=== PATIENT | male | born 1975 | race Two or more races ===

== ENCOUNTER 2025-03-24 07:15 | Day surgery (SDC) | payer MEDICAID, SELFPAY ==
[2025-03-20 08:08] VITALS: BMI 28.0
[2025-03-20 08:59] LABS: Basophils # (Auto) 0.0 Thou/mm3 (0.0-0.2); Basophils % (Auto) 0 % (0-2.5); Eosinophils # (Auto) 0.1 Thou/mm3 (0.0-0.5); Eosinophils % (Auto) 1 % (0-10); Hematocrit 48.2 % (41.0-53.0); Hemoglobin 16.6 g/dL (13.5-16.0); Immature Granulocytes Auto 0.02 Thou/mm3 (0.00-0.00); Lymphocytes # (Auto) 1.3 Thou/mm3 (1.0-4.8); Lymphocytes % (Auto) 19 % (10-50); Mean Corpuscular HGB Conc 34.4 g/dl (31.0-37.0); Mean Corpuscular Hemoglobin 33.2 pg (25.0-35.0); Mean Corpuscular Volume 96 fL (80-100); Monocytes # (Auto) 0.5 Thou/mm3 (0.0-0.8); Monocytes % (Auto) 7 % (0-12); Neutrophils # (Auto) 5.1 Thou/mm3 (1.8-7.7); Neutrophils % (Auto) 72 % (37-80); Nucleated Red Blood Cell # 0.00 Thou/mm3 (0.00-0.00); Nucleated Red Blood Cell % 0 /100 WBC (0); Platelet Count 309 Thou/mm3 (140-440); RDW Standard Deviation 44.6 fL (35.1-43.9); Red Blood Count 5.00 Miln/mm3 (4.50-5.90); White Blood Count 7.1 Thou/mm3 (3.8-10.6)
[2025-03-20 09:07] LABS: INR 1.0 (0.9-1.3); Partial Thromboplastin Time 26.8 Seconds (22.0-36.0); Prothrombin Time 10.7 Seconds (9.0-12.2)
[2025-03-20 09:08] LABS: Alanine Aminotransferase 61 U/L (10-49); Albumin, Serum 4.6 gm/dL (3.5-5.0); Albumin/Globulin Ratio 1.4 (1.2-2.2); Alkaline Phosphatase 104 U/L (46-116); Anion Gap 8 (7-16); Aspartate Amino Transferase 42 U/L (0-34); BUN/Creatinine Ratio 29 Ratio (12-20); Bilirubin,Total 0.4 mg/dL (0.3-1.2); Blood Urea Nitrogen 29 mg/dL (9-23); Calcium 9.4 mg/dL (8.3-10.6); Calcium (Corrected) 9.4 mg/dL (8.5-10.1); Carbon Dioxide 29.4 mMol/L (20.0-31.0); Chloride 105 mMol/L (98-107); Creatinine (Component) 1.0 mg/dL (0.6-1.3); Estimated Creatinine Clearance 85.4 mL/min (>60); Globulin 3.3 gm/dL (2.3-3.5); Glucose 109 mg/dL (74-106); Osmolality,Calculated 289 (275-295); Potassium 4.7 mMol/L (3.4-5.1); Sodium 142 mMol/L (136-145); Total Protein 7.9 gm/dL (5.7-8.2); eGFR > 60 See Note
--- NOTE | 2025-03-23 15:00 | SUR.PREOP ---
Pt's LP, notified to bring pt at 0800 tomorrow.
[2025-03-24] VITALS (7 sets, daily range): BP systolic 105–151; BP diastolic 62–99; PULSE 82–104; RESP 12–20; TEMP 36.1–36.4; O2SAT 96–98; BMI 27.5
--- NOTE | 2025-03-24 11:33 | SUR.PHASEI ---
pt received from OR in recovery bay 2. pt obtunded, breathing unlabored on oxymask 8l, oral airway in place. v/s stable. pt dressing to abd cdi. report received from Deny Luevano and Dr. Zarate.
--- NOTE | 2025-03-24 11:39 | PD.SUROPNT ---
Date of Procedure 03/24/25 Pre Op Diagnosis Symptomatic umbilical hernia Post Op Diagnosis Same Procedure Repair of the symptomatic umbilical hernia with 1.7 inch Ventralex mesh Findings Patient had a defect made above 1.5 cm and required a mesh Procedure Description Of the patient was brought to the operating room endotracheal anesthesia was given. Abdomen was prepped with ChloraPrep solution and draped in sterile manner. Timeout was performed. Then I made a curved incision below the umbilicus and the skin was dissected away using Luigi retractors. Patient was found to have a hernia which was and is found to have preperitoneal fat. The sac was excised all the way down to the fascia which was clearly identified. This was dissected out to make sure there were no adhesions underneath and I placed a 1.[address] mesh and attach the Marlex straps to the edges with a 2-0 Prolene. I also placed sutures opposite of the Marlex mesh on both sides to anchor the mesh to the anterior abdominal wall. The subcutaneous tissue was closed with 3-0 plain and skin by 4-0 Monocryl subcuticular stitch. Dressing was applied with Adaptic and 4 x 4 and patient tolerated procedure well. Anesthesia GET[employer] Implants 1.[address] mesh Pathology / specimen None Estimated Blood Loss 10 Surgeon Darryl Franco MD Surgical Staff Operation Date: 03/24/25 10:00 Case Staff Anesthesiologist: John Grove RNcommunity service worker: Adrianna Ratliff
--- NOTE | 2025-03-24 12:15 | SUR.PHASEII ---
pt able to tolerate oral fluids without difficulty swallowing or nausea/vomiting.
--- NOTE | 2025-03-24 12:31 | SUR.PHASEII ---
pt awake and alert, breathing unlabored on room air. v/s stable. pt dressing to abd cdi. pt able to ambulate to wheelchair with steady gait. d/c instructions given with s/o Tiffanie in room, all questions answered. pt d/c via wheelchair with all belongings.
== END 2025-03-24 12:31 | disposition home or self-care (01) ==
PROVIDERS: Referring Provider Surgery; Visit Provider Surgery
PROC: (CPT 49591; principal; 2025-03-24 09:45)
DX: K42.9 Umbilical hernia without obstruction or gangrene (principal)
CPT/HCPCS: 49591; 36415; 80053; 85025; 85610; 85730; A4649; C1781; J0131; J1100; J2704; J2765; J3010; J3490; J1596